=== PATIENT | male | born 1950 | race Caucasian/White ===

== ENCOUNTER 2024-02-15 10:10 | Emergency (ER) | payer MEDICARE, OTHER ==
[2024-02-15] MEDS: Ketotifen 0.025% Ophth Soln 5 ML Bottle EYERT ONE (11:01)
== END 2024-02-15 11:10 | disposition home or self-care (01) ==
LOC: JP.ED 10:10
DX: H10.31 Unspecified acute conjunctivitis, right eye (principal); Z79.899 Other long term (current) drug therapy
CPT/HCPCS: 99283; A9270